=== PATIENT | female | born 1985 | race Hispanic/Latino ===

== ENCOUNTER 2022-07-31 17:07 | Emergency (ER) | payer OTHER ==
[~2022-07-31] VITALS: Ht 162.6 cm; Wt 72.6 kg
[2022-07-31] MEDS ORDERED: 0.9%NACL 1000ML 1,000 ML IV ONE (17:30)
[2022-07-31 17:46] LABS: BASOPHILS % (AUTO) 0.2 % (0.0-5.0); EOSINOPHILS % (AUTO) 0.6 % (0.0-8.0); HEMATOCRIT 34.9 % (36-48); LYMPHOCYTES % (AUTO) 18.1 % (21.0-51.0); MEAN CORPUSCULAR HEMOGLOBIN 29.4 pg (27.0-33.0); MEAN CORPUSCULAR HGB CONC 33.5 g/dL (32.0-36.0); MEAN CORPUSCULAR VOLUME 87.7 fL (79-99); MONOCYTES % (AUTO) 7.3 % (3.0-13.0); NEUTROPHILS % (AUTO) 73.4 % (40.0-77.0); PLATELET COUNT (AUTO) 268 K/uL (130-400); RED BLOOD CELL COUNT(AUTO) 3.98 MIL/uL (4.00-5.50); RED CELL DISTRIBUTION WIDTH 13.3 % (11.0-15.5); WHITE BLOOD COUNT (AUTO) 8.3 K/uL (4.8-10.8)
[2022-07-31 18:11] LABS: CARBON DIOXIDE 27 mmol/L (21-32); CHLORIDE 98 mmol/L (101-111); CREATININE 0.6 mg/dL (0.5-1.5); GLOMERULAR FILTR. RATE CALC 118 mL/min (>90); GLUCOSE,RANDOM 109 mg/dL (70-105); POTASSIUM 3.7 mmol/L (3.5-5.1); SODIUM SERUM 132 mmol/L (136-145); UREA NITROGEN, BLOOD 7 mg/dL (7-18)
[2022-07-31 18:15] LABS: ALANINE AMINOTRANSFERASE 48 U/L (12-78); ALBUMIN 3.6 g/dL (3.5-5.0); ASPARTATE AMINOTRANSFERASE 77 U/L (10-37); TOTAL PROTEIN, SERUM 8.7 g/dL (6.0-8.3)
[2022-07-31 18:23] LABS: HCG,QUALITATIVE URINE NEGATIVE (NEGATIVE)
[2022-07-31 18:26] LABS: LIPASE < 50 U/L (114-286)
[2022-07-31] MEDS ORDERED: ONDANSETRON 4MG INJ IVP ONE (18:30)
[2022-07-31] MEDS ORDERED: MORPHINE 4 MG SYG IM ONE (18:30)
[2022-07-31 18:35] LABS: APPEARANCE,URINE CLEAR (CLEAR); BILIRUBIN,URINE NEGATIVE (NEGATIVE); COLOR,URINE YELLOW (YELLOW); GLUCOSE, URINE (UA) NEGATIVE (NEGATIVE); KETONES,URINE NEGATIVE (NEGATIVE); LEUKOCYTE ESTERASE ,URINE NEGATIVE Leu/uL (NEGATIVE); NITRATE,URINE NEGATIVE (NEGATIVE); PH,URINE 6.5 (5.0-8.0); PROTEIN,URINE 10 mg/dL (NEGATIVE)
[2022-07-31] MEDS ORDERED: CEPH500B PO (18:36)
[2022-07-31] MEDS ORDERED: IBUP-2070 PO (18:36)
[2022-07-31 18:46] VITALS: BP 117/57
[2022-07-31 18:59] LABS: MUCUS,URINE RARE LPF (None Seen); SQUAMOUS EPITHELIAL CELL,UR RARE /HPF (0-2); WBC,URINE 0-1 /HPF (0-1)
[2022-07-31] MEDS ORDERED: KETOROLAC 30MG VIAL (30MG/ML) IM ONE (19:30)
== END 2022-07-31 19:54 | disposition home or self-care (01) ==
LOC: EDH 17:07
DX: N83.8 Other noninflammatory disorders of ovary, fallopian tube and broad ligament (principal); L73.9 Follicular disorder, unspecified; Z20.822 Contact with and (suspected) exposure to COVID-19; Z90.49 Acquired absence of other specified parts of digestive tract; Z98.890 Other specified postprocedural states
CPT/HCPCS: 99285; 74176; 96374; 96361; 87635; 84484; 80053; 83690; 85025; 87880; 87804 ×2; 83605; 81001; 81025; 36415; 96372 ×2; C9803; J7030; J2405; J2270; J1885

== ENCOUNTER 2022-08-29 00:52 | Emergency (ER) | payer OTHER ==
[~2022-08-29] VITALS: Ht 162.6 cm; Wt 72.6 kg
[~2022-08-29 00:52] MED LIST: CEPH500B PO; IBUP-2070 PO
[2022-08-29] MEDS ORDERED: MORPHINE 2 MG SYG IVP ONE (01:00)
[2022-08-29] MEDS ORDERED: LACTATED RINGERS 1000ML 1,000 ML IV ONE (01:00)
[2022-08-29] MEDS ORDERED: KETOROLAC 30MG VIAL (30MG/ML) IVP ONE (01:00)
[2022-08-29] MEDS ORDERED: ONDANSETRON 4MG INJ IVP ONE (01:00)
[2022-08-29 01:17] VITALS: BP 118/55
[2022-08-29 01:18] LABS: BASOPHILS % (AUTO) 0.5 % (0.0-5.0); EOSINOPHILS % (AUTO) 4.8 % (0.0-8.0); HEMATOCRIT 36.8 % (36-48); LYMPHOCYTES % (AUTO) 34.2 % (21.0-51.0); MEAN CORPUSCULAR HEMOGLOBIN 28.9 pg (27.0-33.0); MEAN CORPUSCULAR HGB CONC 32.1 g/dL (32.0-36.0); MONOCYTES % (AUTO) 10.4 % (3.0-13.0); NEUTROPHILS % (AUTO) 49.8 % (40.0-77.0); PLATELET COUNT (AUTO) 240 K/uL (130-400); RED BLOOD CELL COUNT(AUTO) 4.09 MIL/uL (4.00-5.50); RED CELL DISTRIBUTION WIDTH 14.2 % (11.0-15.5)
[2022-08-29] MEDS ORDERED: LIDOCAINE HCL-MPF 2% 5ML VIAL ONE (01:27)
[2022-08-29] MEDS ORDERED: LIDOCAINE HCL/PF 2% IV FOR VENTRICULAR ARRHYTHMIA IV PRN (01:30)
[2022-08-29 01:34] LABS: APPEARANCE,URINE CLEAR (CLEAR); BILIRUBIN,URINE NEGATIVE (NEGATIVE); COLOR,URINE LIGHT-YELLOW (YELLOW); GLUCOSE, URINE (UA) NEGATIVE (NEGATIVE); KETONES,URINE NEGATIVE (NEGATIVE); LEUKOCYTE ESTERASE ,URINE NEGATIVE Leu/uL (NEGATIVE); NITRATE,URINE NEGATIVE (NEGATIVE); PH,URINE 6.5 (5.0-8.0); PROTEIN,URINE NEGATIVE (NEGATIVE); UROBILINOGEN,URINE 0.2 mg/dL (0.2-1.0)
[2022-08-29 01:43] LABS: CREATININE 0.6 mg/dL (0.5-1.5); POTASSIUM 3.4 mmol/L (3.5-5.1)
[2022-08-29 01:45] LABS: MUCUS,URINE RARE LPF (None Seen); SQUAMOUS EPITHELIAL CELL,UR RARE /HPF (0-2)
[2022-08-29 01:46] LABS: ALBUMIN 4.1 g/dL (3.5-5.0); TOTAL PROTEIN, SERUM 8.5 g/dL (6.0-8.3)
[2022-08-29] MEDS ORDERED: HYDROMORPHONE 0.5 MG SYG (0.5MG/0.5ML) ONE (01:53)
[2022-08-29] MEDS ORDERED: HYDROMORPHONE 0.5 MG SYG (0.5MG/0.5ML) IVP ONE ×2 (02:00→03:00)
[2022-08-29] MEDS ORDERED: IOHEXOL 350 MG/ML 100ML INFUS..BTL IV ONE (02:30)
[2022-08-29] MEDS ORDERED: HALOPERIDOL INJ 5 MG/ML VIAL IV SCH (03:30)
[2022-08-29] MEDS ORDERED: IBUP-1493 PO (05:07)
[2022-08-29] MEDS ORDERED: DICY20TA2 PO (05:07)
== END 2022-08-29 05:59 | disposition home or self-care (01) ==
LOC: EDH 00:52
DX: R10.2 Pelvic and perineal pain (principal); N83.209 Unspecified ovarian cyst, unspecified side; Z90.49 Acquired absence of other specified parts of digestive tract; Z98.890 Other specified postprocedural states
CPT/HCPCS: 99285; 74178; 96374; 96375; 76856; 96361; 80053; 83690; 85025; 81001; 81025; 36415; 96376; J7120; J1630; J2405; J1885; J3490; J1170 ×2; Q9967

== ENCOUNTER 2022-08-31 20:40 | Inpatient (IN) | payer OTHER ==
[~2022-08-31] VITALS: Ht 162.6 cm; Wt 68.0 kg
[~2022-08-31 20:40] MED LIST changes: +DICY20TA2 PO; +IBUP-1493 PO
[2022-08-31 21:16] LABS: BASOPHILS % (AUTO) 0.3 % (0.0-5.0); EOSINOPHILS % (AUTO) 0.8 % (0.0-8.0); HEMATOCRIT 37.9 % (36-48); LYMPHOCYTES % (AUTO) 16.2 % (21.0-51.0); MEAN CORPUSCULAR HEMOGLOBIN 28.5 pg (27.0-33.0); MEAN CORPUSCULAR HGB CONC 32.7 g/dL (32.0-36.0); MEAN CORPUSCULAR VOLUME 87.1 fL (79-99); MONOCYTES % (AUTO) 7.4 % (3.0-13.0); NEUTROPHILS % (AUTO) 74.9 % (40.0-77.0); PLATELET COUNT (AUTO) 270 K/uL (130-400); RED BLOOD CELL COUNT(AUTO) 4.35 MIL/uL (4.00-5.50); WHITE BLOOD COUNT (AUTO) 7.5 K/uL (4.8-10.8)
[2022-08-31 21:23] LABS: APPEARANCE,URINE CLEAR (CLEAR); BILIRUBIN,URINE NEGATIVE (NEGATIVE); COLOR,URINE YELLOW (YELLOW); GLUCOSE, URINE (UA) NEGATIVE (NEGATIVE); KETONES,URINE 10 mg/dL (NEGATIVE); LEUKOCYTE ESTERASE ,URINE NEGATIVE Leu/uL (NEGATIVE); NITRATE,URINE NEGATIVE (NEGATIVE); OCCULT BLOOD,URINE NEGATIVE (NEGATIVE); PROTEIN,URINE 20 mg/dL (NEGATIVE); UROBILINOGEN,URINE 0.2 mg/dL (0.2-1.0)
[2022-08-31 21:40] LABS: MUCUS,URINE MOD LPF (None Seen); SQUAMOUS EPITHELIAL CELL,UR FEW /HPF (0-2)
[2022-08-31 21:42] LABS: CARBON DIOXIDE 28 mmol/L (21-32); CHLORIDE 99 mmol/L (101-111); CREATININE 0.7 mg/dL (0.5-1.5); GLOMERULAR FILTR. RATE CALC 114 mL/min (>90); GLUCOSE,RANDOM 102 mg/dL (70-105); POTASSIUM 3.1 mmol/L (3.5-5.1); SODIUM SERUM 138 mmol/L (136-145); UREA NITROGEN, BLOOD 12 mg/dL (7-18)
[2022-08-31 21:54] LABS: INR 0.95 (0.85-1.15); PROTHROMBIN TIME 10.4 SEC (9.6-11.6)
[2022-08-31 21:55] LABS: ALANINE AMINOTRANSFERASE 25 U/L (12-78); ALBUMIN 4.2 g/dL (3.5-5.0); ASPARTATE AMINOTRANSFERASE 18 U/L (10-37); CREATINE KINASE, TOTAL 186 U/L (21-232); PARTIAL THROMBOPLASTIN TIME 28.5 SEC (26.3-35.5); TOTAL PROTEIN, SERUM 9.2 g/dL (6.0-8.3)
[2022-08-31 21:57] LABS: LIPASE < 50 U/L (114-286)
[2022-08-31] MEDS ORDERED: 0.9%NACL 1000ML 2,500 ML IV ONE (22:00)
[2022-08-31] MEDS ORDERED: IOHEXOL-350 75 ML VIAL IV ONE (22:02)
[2022-08-31] MEDS ORDERED: ONDANSETRON 4MG INJ ONE (23:21)
[2022-08-31] MEDS ORDERED: CEFTRIAXONE 1G VIAL IVPB ONE (23:30)
[2022-08-31] MEDS ORDERED: CLINDAMYCIN IVPB 900MG/50ML 50 ML IV SCH (23:30)
[2022-08-31] MEDS ORDERED: HYDROMORPHONE 1 MG INJ IVP ONE (23:30)
[2022-09-01] VITALS (7 sets, daily range): BP systolic 112–127; BP diastolic 53–74
[2022-09-01] MEDS ORDERED: POTASSIUM CHLORIDE 10% ELIXIR 20 MEQ/15 ML UDCUP PO PRN
[2022-09-01] MEDS ORDERED: ONDANSETRON 4MG INJ IV PRN
[2022-09-01] MEDS ORDERED: POTASSIUM CHLORIDE 20MEQ/100ML 100 ML IV PRN
[2022-09-01] MEDS ORDERED: ACETAMINOPHEN 325 MG TAB PO PRN ×2
[2022-09-01] MEDS ORDERED: MAGNESIUM 2GM PREMIX 50ML 50 ML IV PRN
[2022-09-01] MEDS ORDERED: MORPHINE 4 MG SYG IV PRN
[2022-09-01] MEDS ORDERED: ONDANSETRON 4MG INJ IVP ONE
[2022-09-01] MEDS ORDERED: KCL 20 MEQ ERTAB PO PRN
[2022-09-01] MEDS: LACTATED RINGERS 1000ML 1,000 ML IV SCH ×2 (00:20→20:57)
[2022-09-01] MEDS: DOXYCYCLINE 100MG+NS 250ML 250 ML IV SCH ×2 (00:20→12:17)
[2022-09-01] MEDS: CEFTRIAXONE 1G VIAL IV SCH ×2 (00:33→23:57)
[2022-09-01 06:44] LABS: BASOPHILS % (AUTO) 0.2 % (0.0-5.0); EOSINOPHILS % (AUTO) 0.9 % (0.0-8.0); HEMATOCRIT 31.3 % (36-48); LYMPHOCYTES % (AUTO) 20.4 % (21.0-51.0); MEAN CORPUSCULAR HEMOGLOBIN 28.8 pg (27.0-33.0); MEAN CORPUSCULAR HGB CONC 32.3 g/dL (32.0-36.0); MEAN CORPUSCULAR VOLUME 89.2 fL (79-99); MONOCYTES % (AUTO) 9.8 % (3.0-13.0); NEUTROPHILS % (AUTO) 68.3 % (40.0-77.0); PLATELET COUNT (AUTO) 211 K/uL (130-400); RED BLOOD CELL COUNT(AUTO) 3.51 MIL/uL (4.00-5.50); RED CELL DISTRIBUTION WIDTH 14.1 % (11.0-15.5); WHITE BLOOD COUNT (AUTO) 5.6 K/uL (4.8-10.8)
[2022-09-01 06:53] LABS: CREATININE 0.5 mg/dL (0.5-1.5); MAGNESIUM 2.1 mg/dL (1.80-2.40); PHOSPHORUS 2.8 mg/dL (2.5-4.9); POTASSIUM 3.4 mmol/L (3.5-5.1)
[2022-09-01] MEDS: FAMOTIDINE 20MG TAB PO SCH ×2 (09:21→20:58)
[2022-09-01] MEDS: ENOXAPARIN SODIUM 40 MG/0.4 ML SYRINGE SQ SCH (09:22)
[2022-09-01] MEDS: MORPHINE 2 MG SYG IV PRN ×2 (09:29→20:58)
[2022-09-01] MEDS: KETOROLAC 15MG/ML VIAL (15MG/ML) IV PRN (12:28)
[2022-09-01] MEDS ORDERED: POLYETHYLENE GLYCOL 3350 17 GM POWD.PACK PO SCH (13:30)
[2022-09-01] MEDS ORDERED: DOCUSATE SODIUM 100 MG CAP PO SCH (14:00)
[2022-09-01] MEDS: METRONIDAZOLE 500MG/100ML BAG 100 ML IVPB SCH ×2 (15:52→22:00)
[2022-09-02] MEDS: KETOROLAC 15MG/ML VIAL (15MG/ML) IV PRN (00:03)
[2022-09-02] MEDS: DOXYCYCLINE 100MG+NS 250ML 250 ML IV SCH ×2 (00:31→12:00)
[2022-09-02 03:27] VITALS: BP 109/62
[2022-09-02] MEDS: METRONIDAZOLE 500MG/100ML BAG 100 ML IVPB SCH ×2 (05:48→13:48)
[2022-09-02 06:25] LABS: BASOPHILS % (AUTO) 0.2 % (0.0-5.0); EOSINOPHILS % (AUTO) 1.8 % (0.0-8.0); HEMATOCRIT 28.6 % (36-48); LYMPHOCYTES % (AUTO) 16.3 % (21.0-51.0); MEAN CORPUSCULAR HEMOGLOBIN 28.8 pg (27.0-33.0); MEAN CORPUSCULAR HGB CONC 31.5 g/dL (32.0-36.0); MEAN CORPUSCULAR VOLUME 91.7 fL (79-99); MONOCYTES % (AUTO) 10.2 % (3.0-13.0); PLATELET COUNT (AUTO) 183 K/uL (130-400); RED BLOOD CELL COUNT(AUTO) 3.12 MIL/uL (4.00-5.50); RED CELL DISTRIBUTION WIDTH 13.9 % (11.0-15.5); WHITE BLOOD COUNT (AUTO) 5.6 K/uL (4.8-10.8)
[2022-09-02 06:37] LABS: CREATININE 0.5 mg/dL (0.5-1.5); CRP QUANTITATIVE 112.3 mg/L (0.00-9.0); POTASSIUM 3.7 mmol/L (3.5-5.1)
[2022-09-02] MEDS ORDERED: DOCUSATE SODIUM 100 MG CAP PO SCH (07:30)
[2022-09-02 08:00] VITALS: BP 123/68
[2022-09-02 08:03] LABS: ERYTHROCYTE SEDIMENTATION RATE 51 MM/HR (0-20)
[2022-09-02] MEDS: FAMOTIDINE 20MG TAB PO SCH (08:58)
[2022-09-02] MEDS: ENOXAPARIN SODIUM 40 MG/0.4 ML SYRINGE SQ SCH (08:59)
[2022-09-02] MEDS ORDERED: POLYETHYLENE GLYCOL 3350 17 GM POWD.PACK PO SCH (09:00)
[2022-09-02 12:00] VITALS: BP 116/70
[2022-09-02 13:43] LABS: HEMATOCRIT 29.7 % (36-48)
[2022-09-02] MEDS ORDERED: METR-172 PO (15:19)
[2022-09-02] MEDS ORDERED: DOXY100C5 PO (15:19)
[2022-09-02 16:00] VITALS: BP_SYST 124; BP_SYST 138; BP_DIAS 41; BP_DIAS 80
== END 2022-09-02 16:20 | disposition home or self-care (01) | DRG 759 ==
LOC: EDH 20:40 → EDHIP 23:42 → EEVIPCON 23:42 → WSH 09-01 00:55
PROVIDERS: ADMIT Family Medicine; ATTEND Family Medicine
DX: N73.9 Female pelvic inflammatory disease, unspecified (principal); E87.6 Hypokalemia; Z20.822 Contact with and (suspected) exposure to COVID-19; K42.9 Umbilical hernia without obstruction or gangrene; K59.00 Constipation, unspecified; Z98.51 Tubal ligation status
CPT/HCPCS: 36415; 74177; 76830; 76856; 80048; 80053; 81001; 82550; 83605; 83690; 83735; 84100; 84145; 84484; 85014; 85018; 85025; 85610; 85651; 85730; 86140; 86738; 87040; 87088; 87486; 87635; 87797; 87804; G0378; J0696; J1170; J1650; J1885; J2270; J2405; J3490; J7120; Q9967

== ENCOUNTER 2023-07-04 14:39 | Emergency (ER) | payer OTHER ==
[~2023-07-04] VITALS: Ht 162.6 cm; Wt 68.9 kg
[~2023-07-04 14:39] MED LIST changes: -CEPH500B PO; -DICY20TA2 PO; +DOXY100C5 PO; -IBUP-1493 PO; -IBUP-2070 PO; +METR-172 PO
[2023-07-04 14:40] VITALS: BP 124/84; PULSE 98; RESP 18
[2023-07-04] MEDS: DEXAMETHASONE SOD PHOSPHATE 4 MG/ML 1ML VIAL IM ONE (15:10)
[2023-07-04] MEDS: ONDANSETRON ODT 4MG TAB SL ONE (15:11)
[2023-07-04] MEDS: PSEUDOEPHEDRINE HCL 30 MG TAB PO SCH (15:11)
[2023-07-04] MEDS: KETOROLAC 60 MG VIAL (30MG/ML) IM ONE (15:11)
[2023-07-04 15:17] LABS: RAPID GROUP A STREP negative (NEGATIVE)
[2023-07-04 15:25] LABS: SARS-CoV-2, RNA, NAAT NEGATIVE SARS CoV-2 (NEGATIVE)
[2023-07-04 15:26] LABS: INFLUENZA TYPE A Negative For Type A (NEGATIVE); INFLUENZA TYPE B Negative For Type B (NEGATIVE)
[2023-07-04] MEDS ORDERED: IBUP-2070 PO (15:52)
[2023-07-04] MEDS ORDERED: D-ME118S47 PO (15:52)
[2023-07-04] MEDS ORDERED: PRED20TA3 PO (15:52)
[2023-07-04] MEDS ORDERED: AZIT250T9 PO (15:52)
== END 2023-07-04 16:03 | disposition home or self-care (01) ==
LOC: EDH 14:39
DX: J06.9 Acute upper respiratory infection, unspecified (principal); Z20.822 Contact with and (suspected) exposure to COVID-19; Z79.899 Other long term (current) drug therapy; Z90.49 Acquired absence of other specified parts of digestive tract; Z98.890 Other specified postprocedural states
CPT/HCPCS: 99284; 87635; 87880; 87804 ×2; 96372 ×2; J1100; J1885